=== PATIENT | male | born 1960 | race Caucasian/White ===

== ENCOUNTER 2019-06-06 10:17 | Outpatient (CLI) | payer BC, SELFPAY ==
--- NOTE | ~2019-06-06 | CT_ITS ---
EXAMINATION: CT lung screening DATE: 06/06/2019 12:24 INDICATION: Personal history of nicotine dependence. TECHNIQUE: Computed tomography (CT) of the chest was performed without intravenous contrast. The dose -length product was 69.32 mGy-cm. Automated exposure control and iterative reconstruction technique w ere employed. COMPARISON: Chest x-ray dated 08/24/2016 FINDINGS: No thoracic lymphadenopathy. Heart size is normal. No significant pleural or pericardial ef fusion. There is atherosclerosis of the aorta and coronary arteries. There is severe bullous emphysem a with right upper lobe scarring posteriorly. There are small hypodensities of the liver, largest in the left hepatic lobe measuring 1.8 cm. These are nonspecific. IMPRESSION: 1. Lung-RADS category 2: Benign appearance or behavior. Continue annual screening with noncontrast lo w-dose chest CT in 12 months. 2: Multiple hypodense masses of the liver, largest measuring 1.8 cm. Correlation with contrast-enhanc ed CT abdomen recommended. 3: Severe emphysema. Reviewed, dictated and finalized at location A. IMPRESSION: 1. Lung-RADS category 2: Benign appearance or behavior. Continue annual screeni ng with noncontrast low-dose chest CT in 12 months. 2: Multiple hypodense masses of the liver, largest measuring 1.8 cm. Correlatio n with contrast-enhanced CT abdomen recommended. 3: Severe emphysema.
--- NOTE | 2019-06-12 12:53 | WPDPFTINT ---
PFT Interpretation PFT Interpretation: DOS: 06/06/2019 REQUESTING: Dr Camacho REASON FOR TESTING: Shortness of breath PULMONARY FUNCTION TESTS Results are reproducible and reliable. Spirometry: FEV1 is 62%, 2.08 L, moderately reduced. FVC 87%, normal. FEV1% is 50%, reduced, consistent with airflow obstruction. OKE11-45% is 21%, extremely reduced. There is a significant response to bronchodilator in the small airways, 27% increase. Lung volumes: TLC 121%, mild hyperinflation. RV is 172%, severe air trapping. Increased airway resistance 292%. Diffusion: DLCO 86%, normal. Flow volume loop: Scooping of the expiratory limb. IMPRESSION: Moderate obstructive ventilatory impairment, severe small airways pattern, mild hyperinflation, severe air trapping with normal diffusion. Good response to bronchodilator in the small airways. In the proper clinical setting, this may represent asthma/COPD overlap. Bernie Camacho MD
--- NOTE | 2019-06-12 12:58 | WPDSIXMINUTE ---
Six Minute Walk Six Minute Walk: DOS: 06/06/2019 REQUESTING: Dr Camacho REASON FOR TESTING: Shortness of breath SIX MINUTE WALK This test was conducted per ATS guidelines. The test was conducted on room air. Initial saturation was 98%, heart rate 65. The patient walked for 6 minutes without stopping, completed 110 feet/335 meters. No desaturation. Saturation ranged form 96-99%. Heart rate ranged from 60 to 79. IMPRESSION: Normal walk study without desaturaiton. No supplemental oxygen indicated with exertion. Distance walked is adequate for age.
== END 2019-06-06 10:18 | disposition home or self-care (01) ==
PROVIDERS: PCP Emergency Medicine; Visit Provider Internal Medicine Critical Care Medicine
DX: J44.9 Chronic obstructive pulmonary disease, unspecified (principal); Z12.2 Encounter for screening for malignant neoplasm of respiratory organs; Z87.891 Personal history of nicotine dependence; R94.2 Abnormal results of pulmonary function studies; J43.9 Emphysema, unspecified; R16.0 Hepatomegaly, not elsewhere classified
CPT/HCPCS: 94060; 94618; 94726; 94729; G0297

== ENCOUNTER 2019-08-06 11:21 | Emergency (ER) | payer BC, SELFPAY ==
--- NOTE | ~2019-08-06 | XR_ITS ---
EXAMINATION: XR ankle LT min 3V EXAM DATE: 08/06/2019 11:42 INDICATION: Ankle pain, previous surgery. TECHNIQUE: Left ankle frontal, lateral and oblique projections obtained and reviewed. Comparison is m paul to prior examination from 10/11/2010. FINDINGS: There is left fibular, medial malleolar fixation hardware intact and without surrounding l ucency, no evidence of infection. There are no acute fractures or dislocations identified. There is no subcutaneous gas. The soft tissue is unremarkable. There are no radiopaque foreign bodies. Ank le joint space is preserved. IMPRESSION: Intact left mortise fusion hardware. Reviewed, dictated and finalized at location B.
[2019-08-06 11:25] VITALS: BP 196/80; PULSE 66; RESP 18; TEMP 36.6; O2SAT 97
--- NOTE | 2019-08-06 13:13 | ED.LOWEXIN ---
HPI - Extremity Injury (Lower) General Chief Complaint: Extremity Injury, Lower Stated Complaint: screws coming out of my leg Time Seen by Provider: 08/06/19 12:52 Source: patient Mode of arrival: ambulatory History of Present Illness HPI Narrative: 59 years old white male, history of left ankle surgery 6 years ago, over the last 6 months patient believes that the nail and screws coming out. Because he have bumps on the left ankle. Patient denies any recent trauma. Related Data Home Medications Medication Instructions Recorded Confirmed albuterol sulfate 90 mcg/actuation 1 inhalation INHALATION Q4H 05/23/19 aerosol inhaler amlodipine 10 mg tablet 10 mg PO DAILY 05/23/19 lisinopril 30 mg tablet 30 mg PO DAILY 05/23/19 Allergies Allergy/AdvReac Type Severity Reaction Status Date / Time pentazocine Allergy Mild Unknown Verified 08/06/19 11:41 Review of Systems Review of Systems: Narrative: CONSTITUTIONAL: Denies fever, chills, or sweats. EYES: Denies visual changes, redness, or discharge. ENT: Denies rhinorrhea, congestion, sore throat, or otalgia. CARDIOVASCULAR: Denies chest pain, palpitations, or edema. RESPIRATORY: Denies cough or dyspnea. GASTROINTESTINAL: Denies abdominal pain, nausea, vomiting, or diarrhea. GENITOURINARY: Denies dysuria or hematuria. SKIN: Denies rash or itching. MUSCULOSKELETAL: Denies back pain, joint pain, or myalgia. NEUROLOGIC: Denies headache, numbness, or weakness. PSYCHIATRIC: Denies anxiety or depression. [facility] Past Medical History Medical History Chest tube in place COPD (chronic obstructive pulmonary disease) Diverticulosis History of pneumothorax History of tobacco abuse HTN (hypertension) Marijuana smoker Shortness of breath on exertion Surgical History Surgical History Colonoscopy planned History of ankle surgery Social History Social History Smoking packs per day: 3 Smoking cigarettes per day: 60.0 Years smoked: 30 Smoking pack-years: 90.00 Smoking status: Former smoker Tobacco type: cigarettes Smoking end date: 03/10/17 Alcohol intake: current Drinks per week: 12 Substance use: current Substance use type: marijuana Last use: this morning; one joint per day Additional occupation/education comments: 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 Has 4 biologic children, lives with significant other Odalys and their daughter Julia. Gender identity (if verbalized by the patient): Male Exam Narrative: Exam Narrative: General appearance: Well-developed, well-nourished Skin: Normal color Head: Normocephalic, nontraumatic Eyes: Clear conjunctiva ENT: Oropharynx normal, ears normal, nose normal Neck: Supple, nontender Chest and respiratory: Airway patent, no respiratory distress, no accessory muscle use Heart: Regular rate/rhythm Abdomen: Soft, nontender, no organomegaly, quiet bowel sounds Vascular: Normal peripheral pulses, normal capillary refill. Musculoskeletal: Normal range of motion, nontender back. Left ankle showed surgical scar tissue, no bruises, no swelling, no deformity, palpable lumps along the side of the ankle bilaterally, no open wound, no erythema, no drainage Neurologic: Alert and oriented ?3, [employer]OCI[employer]UC[employer] is normal as tested, no gross motor deficit Course Course Emergency Course: Stable Vital Signs Vital signs: Vital Signs Temperature 36.6 C 08/06/19 11:25 Pulse Rate 66
[2019-08-06 13:17] VITALS: BP 140/103; PULSE 64; RESP 15; O2SAT 100
== END 2019-08-06 13:25 | disposition home or self-care (01) ==
PROVIDERS: Emergency Provider Emergency Medicine; PCP Emergency Medicine
DX: M25.572 Pain in left ankle and joints of left foot (principal); Z87.891 Personal history of nicotine dependence; J44.9 Chronic obstructive pulmonary disease, unspecified; K57.90 Diverticulosis of intestine, part unspecified, without perforation or abscess without bleeding
CPT/HCPCS: 73610; 99283

== ENCOUNTER 2019-10-29 18:12 | Emergency (ER) | payer OTHER, BC, SELFPAY ==
--- NOTE | ~2019-10-29 | CT_ITS ---
EXAMINATION: CT cervical spine wo con DATE: 10/29/2019 19:56 INDICATION: Neck pain TECHNIQUE: Computed tomography (CT) of the cervical spine was performed without intravenous contrast. The dose-length product (DLP) was 243.62 mGy-cm. Automated exposure control and iterative reconstruc tion technique were employed. COMPARISON: None FINDINGS: Motion artifact slightly limits evaluation of the mid cervical spine. No fracture is identi fied. There are 2 mm of anterolisthesis of C4 on C5. There is moderate loss of intervertebral disc sp ricci height at C5-6 and C6-7. The prevertebral soft tissues are normal. The odontoid is intact. There is mild to moderate multilevel facet and uncovertebral joint osteoarthritis. Severe emphysema is note d. IMPRESSION: 1. Moderate cervical spondylosis without acute findings. Reviewed, dictated and finalized at location A.
--- NOTE | ~2019-10-29 | XR_ITS ---
EXAMINATION: XR ribs LT 2V w CXR 2V INDICATION: Left rib and sternal pain, history of pneumothorax TECHNIQUE: AP and lateral views of the chest and 3 views of the left ribs were obtained. COMPARISON: None. FINDINGS: There is severe emphysema. Lungs are free of acute opacities. There is no pleural effusion or pneumothorax. The cardiomediastinal silhouette is normal. No displaced rib fracture is identified. IMPRESSION: 1. No acute cardiopulmonary abnormality or evidence of displaced rib fracture. 2. Severe emphysema. Reviewed, dictated and finalized at location A.
[2019-10-29 18:53] VITALS: BP 189/122; PULSE 77; RESP 17; TEMP 37.3; O2SAT 100
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
== END 2019-10-29 21:54 | disposition left against medical advice (07) ==
PROVIDERS: Emergency Provider Emergency Medicine; PCP Emergency Medicine
DX: S16.1XXA Strain of muscle, fascia and tendon at neck level, initial encounter (principal); S20.219A Contusion of unspecified front wall of thorax, initial encounter; R03.0 Elevated blood-pressure reading, without diagnosis of hypertension; Z87.891 Personal history of nicotine dependence; V43.52XA Car driver injured in collision with other type car in traffic accident, initial encounter
CPT/HCPCS: 71046; 71100; 72125; 99284; L0140

== ENCOUNTER 2020-03-22 11:33 | Outpatient (CLI) | payer BC, SELFPAY ==
[2020-03-22 12:53] LABS: Hematocrit 48.2 % (42.0-52.0); Hemoglobin 16.8 g/dL (14.0-18.0); Mean Corpuscular HGB Conc 34.9 g/dl (32-36); Mean Corpuscular Hemoglobin 34.6 pg (26-34); Mean Corpuscular Volume 99.2 fl (80-100); Mean Platelet Volume 9.4 fl (7.4-10.4); Platelet Count Result 215 k/mm3 (150-375); Red Blood Count 4.86 M/mm3 (4.6-6.20); Red Cell Distribution Width 11.4 % (11.5-14.5); White Blood Count 5.3 K/mm3 (4.5-10.0)
[2020-03-22 13:02] LABS: Hemoglobin A1C 5.3 % (<5.7)
[2020-03-22 13:08] LABS: Alanine Aminotransferase 19 U/L (4-50); Albumin Level 4.5 g/dL (3.5-5.1); Alkaline Phosphatase 56 U/L (38-126); Anion Gap 4 mmol/L (8-16); Aspartate Amino Transferase 31 U/L (17-59); Bilirubin,Total 0.4 mg/dL (0.2-1.3); Blood Urea Nitrogen 19 mg/dL (9-20); Calcium 9.8 mg/dL (8.4-10.2); Carbon Dioxide 32 mmol/L (22-30); Chloride 99 mmol/L (98-107); Estimated Glomerular Filt Rate > 60; Ethanol < 10 mg/dL (<10); Glucose 82 mg/dL (75-110); Potassium 4.6 mmol/L (3.4-5.0); Sodium 135 mmol/L (137-145)
[2020-03-22 13:11] LABS: Rheumatoid Factor < 8.6 IU/ML (<12)
[2020-03-22 13:16] LABS: Erythrocyte Sedimentation Rate 7 mm/hr (0-20)
[2020-03-22 13:34] LABS: Creatinine Urine 62.3 mg/dL
[2020-03-22 13:40] LABS: MALB Creatinine Ratio 26.8 mg/g (0-30); Microalbumin Urine Random 16.7 mg/L (0-16.7)
[2020-03-22 13:41] LABS: Prostate Specific Antigen 2.7 ng/mL (< OR = 4.0)
[2020-03-23 09:50] LABS: Cholesterol 148 mg/dL (0-200); HDL Direct 63 mg/dL; Triglycerides 69 mg/dL (<150)
[2020-03-23 09:54] LABS: LDL Cholesterol Direct 76 mg/dL
[2020-03-30 12:30] LABS: Anti Nuclear Antibody Titer 1:40 (Negative)
== END 2020-03-22 11:34 | disposition home or self-care (01) ==
PROVIDERS: PCP Emergency Medicine; Visit Provider Emergency Medicine
DX: R16.0 Hepatomegaly, not elsewhere classified (principal); K63.5 Polyp of colon
CPT/HCPCS: 36415; 80053; 80061; 80307; 82043; 82306; 82607; 83036; 84153; 85027; 85652; 86038; 86039; 86430

== ENCOUNTER 2020-04-21 13:52 | Emergency (ER) | payer BC, SELFPAY ==
[2020-04-21] VITALS (7 sets, daily range): BP systolic 137–184; BP diastolic 75–96; PULSE 66–76; RESP 12–18; TEMP 36.8; O2SAT 98–100
--- NOTE | ~2020-04-21 | XR_ITS ---
EXAMINATION: XR chest 2V DATE: 04/21/2020 14:50 INDICATION: Chest pain and shortness of breath. TECHNIQUE: Frontal and lateral views of the chest were obtained. COMPARISON: Chest 2 views 10/29/2019 FINDINGS: There are lucencies in the upper lungs, consistent with emphysema. No pleural effusion or p neumothorax. The heart size is normal. IMPRESSION: 1. Severe emphysema. Reviewed, dictated and finalized at location A. IMPRESSION: 1. Severe emphysema.
--- NOTE | 2020-04-21 13:58 | ECG_ITS ---
Measurements Intervals [place] Rate: 67 P: 69 WI: 163 QRS: 23 QRSD: 102 T: 59 QT: 354 QTc: 375 Interpretive Statements SINUS RHYTHM INCOMPLETE RIGHT BUNDLE BRANCH BLOCK PEAKED T WAVES- CONSIDER HYPERKALEMIA OR ISCHEMIA ABNORMAL ECG Electronically Signed On 04-21-2020 14:07:56 CDT by Mark Malin D.O.
--- NOTE | 2020-04-21 14:00 | PC.NURSE ---
BS 89
[2020-04-21 14:03] LABS: Glucose Point of Care 89 (65-105)
--- NOTE | 2020-04-21 14:15 | ED.GENADULT ---
HPI - General Adult General Chief complaint: Chest Pain Stated complaint: left side body pain Time Seen by Provider: 04/21/20 14:03 Source: patient History of Present Illness HPI narrative: Patient is a 60 y/o male complaining left sided pain starting today. He describes his pain as aching and rates it as 10/10. There is no alleviating or exacerbating factor. He also has generalized abdominal pain, SOB and chest pain. He has been drinking until yesterday. Related Data Home Medications Medication Instructions Recorded Confirmed albuterol sulfate 90 mcg/actuation 1 inhalation INHALATION Q4H 05/23/19 aerosol inhaler amlodipine 10 mg tablet 10 mg PO DAILY 05/23/19 lisinopril 30 mg tablet 30 mg PO DAILY 05/23/19 Allergies Allergy/AdvReac Type Severity Reaction Status Date / Time pentazocine Allergy Mild Unknown Verified 04/21/20 14:00 Review of Systems Constitutional: Constitutional: Denies chills, Denies fever(s), Denies headache(s) and Denies weakness Eyes: Eyes: Denies blurry vision ENT: Denies headache(s) and Denies neck pain Cardiovascular: Cardiovascular: Reports chest pain and Reports dyspnea Respiratory: Respiratory: Reports cough and Reports dyspnea Gastrointestinal: Gastrointestinal: Denies abdominal pain, Denies diarrhea, Denies nausea and Denies vomiting Genitourinary: Genitourinary: Denies hematuria and Denies dysuria Musculoskeletal: Musculoskeletal: Denies back pain, Reports myalgias and Denies neck pain Neurologic: Denies headache(s) and Denies weakness PMFSH Past Medical History Medical History (Updated 04/21/20 @ 23:18 by Corina Mccabe MD) Chest tube in place COPD (chronic obstructive pulmonary disease) Diverticulosis History of pneumothorax History of tobacco abuse HTN (hypertension) Marijuana smoker Shortness of breath on exertion Surgical History Surgical History Colonoscopy planned History of ankle surgery Social History Social History Smoking packs per day: 3 Smoking cigarettes per day: 60.0 Years smoked: 30 Smoking pack-years: 90.00 Smoking status: Former smoker Tobacco type: cigarettes Smoking end date: 03/10/17 Alcohol intake: current Drinks per week: 12 Substance use: current Substance use type: marijuana Last use: this morning; one joint per day Additional occupation/education comments: 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 Has 4 biologic children, lives with significant other Odalys and their daughter Julia. Gender identity (if verbalized by the patient): Male Exam Const: General: no acute distress and well developed Orientation/consciousness: oriented to person, oriented to place, oriented to time and patient oriented x3 HENMT: Head: normocephalic Ears: external ears normal General nose exam: Normal external nose present Eyes: General: appearance normal, both eyes and all related structures Conjunctivae: conjunctivae normal Neck: Neck: normal visual inspection and full ROM Chest: Chest palpation & inspection: normal inspection of the chest and no tenderness Resp: Effort & Inspection: normal respiratory effort Auscultation: clear to auscultation bilaterally Cardio: Rate: regular rate Rhythm: regular rhythm Peripheral pulses: Peripheral pulses 2+ throughout GI: GI Palp: No abdominal tenderness and Yes Soft to palpation Skin: General skin exam: normal color and turgor normal Neuro: General: oriented to person, oriented to place, oriented to time and patient oriented x3 Cognition (Neuro): normal cognition Extrem: General: normal to inspection, full ROM and no pedal edema Psych: Appearance: grossly normal Mental Status: mental status grossly normal Affect: normal affect Course Vital Signs Yuly
[2020-04-21 14:32] LABS: Basophils Percent Auto 0.5 % (0.2-1.2); Eosinophils Absolute Auto 0.1 K/mm3 (0-0.3); Eosinophils Percent Auto 1.3 % (0-4.4); Hematocrit 44.3 % (42.0-52.0); Hemoglobin 15.9 g/dL (14.0-18.0); Immature Granulocyte Absolute 0.02 K/mm3 (0.00-0.031); Immature Granulocyte Percent A 0.4 % (0-0.5); Lymphocytes Absolute Auto 1.37 K/mm3 (0.9-3.2); Lymphocytes Percent Auto 24.6 % (18.3-44.2); Mean Corpuscular HGB Conc 35.9 g/dl (32-36); Mean Corpuscular Volume 94.9 fl (80-100); Mean Platelet Volume 9.6 fl (7.4-10.4); Monocytes Absolute Auto 0.4 K/mm3 (0.1-0.6); Neutrophils Absolute Auto 3.7 K/mm3 (1.3-6.7); Neutrophils Percent Auto 66.2 % (45.5-73.1); Platelet Count Result 178 k/mm3 (150-375); Red Blood Count 4.67 M/mm3 (4.6-6.20); Red Cell Distribution Width 12.2 % (11.5-14.5); White Blood Count 5.6 K/mm3 (4.5-10.0)
[2020-04-21 14:36] LABS: INR 0.9; Prothrombin Time 12.4 Seconds (11.1-14.7)
[2020-04-21 14:37] LABS: Partial Thromboplastin Time 25.5 SECONDS (22.3-36.8)
[2020-04-21 14:38] LABS: Alanine Aminotransferase 16 U/L (4-50); Albumin Level 4.3 g/dL (3.5-5.1); Alkaline Phosphatase 69 U/L (38-126); Anion Gap 11 mmol/L (8-16); Aspartate Amino Transferase 26 U/L (17-59); Bilirubin,Total 0.6 mg/dL (0.2-1.3); Blood Urea Nitrogen 18 mg/dL (9-20); Calcium 8.9 mg/dL (8.4-10.2); Carbon Dioxide 22 mmol/L (22-30); Chloride 103 mmol/L (98-107); Estimated Glomerular Filt Rate > 60; Glucose 93 mg/dL (75-110); Lipase 59 U/L (23-300); Potassium 4.6 mmol/L (3.4-5.0); Sodium 136 mmol/L (137-145)
[2020-04-21] MEDS: ONDANSETRON INJ 4 MG/2 ML VIAL (14:45)
[2020-04-21 14:49] LABS: Troponin I < 0.012 ng/mL (0.000-0.034)
[2020-04-21 14:57] LABS: Ethanol 23 mg/dL (<10)
[2020-04-21 17:32] LABS: Troponin I < 0.012 ng/mL (0.000-0.034)
== END 2020-04-21 17:46 | disposition home or self-care (01) ==
PROVIDERS: Emergency Provider Emergency Medicine; PCP Emergency Medicine
DX: R10.84 Generalized abdominal pain (principal); M79.10 Myalgia, unspecified site; J44.9 Chronic obstructive pulmonary disease, unspecified; R07.9 Chest pain, unspecified; F10.929 Alcohol use, unspecified with intoxication, unspecified; I10 Essential (primary) hypertension; K57.90 Diverticulosis of intestine, part unspecified, without perforation or abscess without bleeding; Z87.891 Personal history of nicotine dependence; I45.10 Unspecified right bundle-branch block; R94.31 Abnormal electrocardiogram [ECG] [EKG]
CPT/HCPCS: 36415; 71046; 80053; 80307; 82948; 83690; 84484; 85025; 85610; 85730; 93005; 99284; J2405

== ENCOUNTER 2021-07-19 09:01 | Emergency (ER) | payer BC, SELFPAY ==
--- NOTE | ~2021-07-19 | XR_ITS ---
XR ankle LT min 3V 07/19/2021 09:39 Indication: Status post fall with left ankle pain Procedure: 4 views left ankle Comparison: 08/06/2019 Findings: There is side plate and screws transfixing the distal aspect of the fibula. There are 2 lag screws transfixing the medial malleolus. No acute fracture or traumatic malalignment. Ankle mortise intact. Talar dome is grossly unremarkable. No focal soft tissue abnormality. Impression: 1: No acute fracture. Reviewed, dictated and finalized at location A. Impression: 1: No acute fracture.
--- NOTE | ~2021-07-19 | XR_ITS ---
XR knee LT 3V 07/19/2021 09:39 Indication: Left knee pain Procedure: 3 views left knee Comparison: No prior studies for comparison. Findings: No fracture or traumatic malalignment. There is anatomic alignment. No significant joint ef fusion. No foreign bodies. Extensive vascular calcifications. Impression: 1: No acute bone or joint abnormality. Reviewed, dictated and finalized at location A. Impression: 1: No acute bone or joint abnormality.
[2021-07-19 09:05] VITALS: BP 139/77; PULSE 73; RESP 18; TEMP 36.8; O2SAT 97
--- NOTE | 2021-07-19 09:26 | ED.LOWEXIN ---
HPI - Extremity Injury (Lower) General Chief Complaint: Extremity Injury, Lower Stated Complaint: Left Leg Swelling Time Seen by Provider: 07/19/21 09:12 History of Present Illness HPI Narrative: Patient is a 61-year-old male here for evaluation of left lower leg pain. Patient states that he fell last week while he was cutting the grass, and landed on his left knee. No head injury or loss of consciousness. He has been taking ibuprofen for the pain with good relief, but he presents today due to concerns of screws coming out of my lower leg . Patient had the screws placed about 4 years ago by an unknown surgeon after he sustained a fracture in his ankle. States he has been able to feel the screws for 2 years, but presented today due to the recent fall. Denies numbness, tingling, weakness. He has been ambulatory without issue. Related Data Home Medications Medication Instructions Recorded Confirmed amlodipine 10 mg tablet 10 mg PO DAILY 05/23/19 lisinopril 30 mg tablet 30 mg PO DAILY 05/23/19 Allergies Allergy/AdvReac Type Severity Reaction Status Date / Time pentazocine Allergy Mild Unknown Verified 07/19/21 09:08 Review of Systems Review of Systems: Gen.: Denies fevers or chills Eyes: Denies eye pain or visual change ENT: Denies congestion Respiratory: Denies shortness of breath or cough CV: Denies chest pain or palpitations GI: Denies abdominal pain nausea, emesis or diarrhea denies burning, urgency, frequency or hematuria Musculoskeletal: Reports left knee and ankle pain. Neuro: Denies numbness, tingling, weakness or focal weakness Skin: Denies rash Except as documented, all other systems reviewed and negative [facility] Past Medical History Medical History (Updated 07/19/21 @ 10:01 by Donna Jackson PA-C) Chest tube in place COPD (chronic obstructive pulmonary disease) Diverticulosis History of pneumothorax History of tobacco abuse HTN (hypertension) Marijuana smoker Shortness of breath on exertion Surgical History Surgical History Colonoscopy planned History of ankle surgery Social History Social History Smoking packs per day: 3 Smoking cigarettes per day: 60.0 Years smoked: 30 Smoking pack-years: 90.00 Smoking status: Former smoker Tobacco type: cigarettes Smoking end date: 03/10/17 Alcohol intake: current Drinks per week: 12 Substance use: current Substance use type: marijuana Last use: this morning; one joint per day Additional occupation/education comments: 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 Has 4 biologic children, lives with significant other Odalys and their daughter Julia. Gender identity (if verbalized by the patient): Male Exam Narrative: Gen: Alert, oriented, thin Eyes: EOMI, no icterus Pulm: Respirations even and unlabored, symmetric thorax expansion, no audible stridor or visible cyanosis CV: Regular rate per telemetry GI: No distension, no voluntary/involuntary guarding Neuro: AOx4, moves all extremities without apparent difficulty or weakness, follows commands MSK: Tender to palpation over left anterior patella. Palpable screws under skin of left lateral malleolus. Full range of motion in left knee, hip, ankle. Sensation intact over entire left lower extremity. Skin: No jaundice, no visible bruising, rashes, lesions or wounds on exposed skin Psych: Normal mood/affect, insight/judgement good, adequate fund of knowledge, recent/remote memory intact Course Vital Signs Vital signs: Vital Signs Temperature 98.3 F 07/19/21 09:05 Pulse Rate 73 07/19/21 09:05 Respiratory Rate 18 07/19/21 09:05 Blood Pressure 139/77 07/19/21 09:05 Pulse Oximetry 97 07/19/21 09:05 Oxygen Delivery Room Air 07/19/21 09:05
== END 2021-07-19 10:26 | disposition home or self-care (01) ==
PROVIDERS: Emergency Provider General Practice
DX: M79.662 Pain in left lower leg (principal); J44.9 Chronic obstructive pulmonary disease, unspecified; I10 Essential (primary) hypertension; Z87.891 Personal history of nicotine dependence
CPT/HCPCS: 73562; 73610; 99284

== ENCOUNTER 2022-02-08 10:05 | Emergency (ER) | payer BC, SELFPAY ==
--- NOTE | 2022-02-08 10:08 | ED.GENADULT ---
HPI - General Adult General Chief complaint: Ear Stated complaint: Right Hand/Ear Pain/ High B/P Time Seen by Provider: 02/08/22 10:33 Source: patient, RN notes reviewed and old records reviewed Mode of arrival: ambulatory Limitations: no limitations History of Present Illness HPI narrative: 61-year-old male presents to the [facility] with multiple complaints, decreased hearing in the right ear, chest pain with blurry vision, elevated blood pressure requesting just to have a as prescribed blood pressure medication. States he has tried getting in with his primary but they will prescribe anything for him once his ears flushed out his, right 1 because he can not hear anything reports Intermittent blurry vision and intermittent chest for several weeks. Patient is alert and oriented x4. No acute distress. MD complaint: The right ear decreased hearing Related Data Home Medications Medication Instructions Recorded Confirmed amlodipine 10 mg tablet 10 mg PO DAILY 05/23/19 02/08/22 lisinopril 30 mg tablet 30 mg PO DAILY 05/23/19 02/08/22 isosorbide mononitrate 30 mg 1 mg PO DAILY 02/08/22 02/08/22 tablet,extended release 24 hr Allergies Allergy/AdvReac Type Severity Reaction Status Date / Time pentazocine Allergy Mild Unknown Verified 02/08/22 10:29 Review of Systems Review of Systems: All systems reviewed & are unremarkable except as noted in HPI and below Constitutional: Constitutional: Reports no additional constitutional complaints Eyes: Eyes: Reports no additional eye complaints ENT: Reports as per HPI Cardiovascular: Cardiovascular: Reports as per HPI, Reports chest pain and Denies dyspnea Respiratory: Respiratory: Reports no additional respiratory complaints, Denies chest congestion, Denies cough and Denies dyspnea Gastrointestinal: Gastrointestinal: Reports no additional gastrointestinal complaints, Denies abdominal pain, Denies nausea and Denies vomiting Musculoskeletal: Musculoskeletal: Reports no additional musculoskeletal complaints Integumentary/Breasts: Skin/Breast: Reports system reviewed and no additional complaints, except as docu Neurologic: Reports system reviewed and no additional complaints, except as documented Psychiatric: Psychiatric: Reports no additional psychiatric complaints Allergic/Immunologic: Allergic/Immunologic: Reports no additional allergic/immunologic complaints PMFSH Past Medical History Medical History Chest tube in place COPD (chronic obstructive pulmonary disease) Diverticulosis History of pneumothorax History of tobacco abuse HTN (hypertension) Marijuana smoker Shortness of breath on exertion Surgical History Surgical History Colonoscopy planned History of ankle surgery Social History Social History Smoking packs per day: 3 Smoking cigarettes per day: 60.0 Years smoked: 30 Smoking pack-years: 90.00 Smoking status: Former smoker Tobacco type: cigarettes Smoking end date: 03/10/17 Alcohol intake: current Drinks per week: 12 Substance use: current Substance use type: marijuana Last use: this morning; one joint per day Additional occupation/education comments: 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 Has 4 biologic children, lives with significant other Odalys and their daughter Julia. Gender identity (if verbalized by the patient): Male Comments At the time of my signature, I reviewed and agree with the nursing past medical, surgical, social, and family history. There is no relevant family history pertinent to the patient complaint. Exam Const: General: cooperative, healthy appearing, comfortable, no acute distress, well developed, alert and well nourishe
[2022-02-08 10:17] VITALS: BP 197/100; PULSE 72; RESP 16; TEMP 36.8; O2SAT 98
== END 2022-02-08 10:43 | disposition left against medical advice (07) ==
PROVIDERS: Emergency Provider Nurse Practitioner
DX: I10 Essential (primary) hypertension (principal); H61.21 Impacted cerumen, right ear; Z87.891 Personal history of nicotine dependence; J44.9 Chronic obstructive pulmonary disease, unspecified; F12.90 Cannabis use, unspecified, uncomplicated
CPT/HCPCS: 99211; G0463

== ENCOUNTER 2022-02-09 09:26 | Emergency (ER) | payer BC, SELFPAY ==
--- NOTE | ~2022-02-09 | CT_ITS ---
Non-contrast Head CT History: Headache Technique: Axial non-contrast imaging of the brain was performed. Dose reduction technique was used on this scan by utilizing automated exposure control and iterative reconstruction technique. The dose -length product (DLP) was 605.33 mGy-cm. Findings: There is no evidence of intracranial hemorrhage, mass lesion, or acute infarct. Brain par enchyma appears normal. The ventricles and subarachnoid spaces are normal in size. The calvarium ap pears normal. The visualized paranasal sinuses and mastoid air cells are clear. Impression: No significant abnormality seen. Reviewed, dictated and finalized at location . DIRECTOR Impression: No significant abnormality seen.
--- NOTE | ~2022-02-09 | XR_ITS ---
Clinical Indication: Hypertension PA view of the chest: Comparison: 04/21/2020 Findings: Focal airspace opacity right upper lobe noted, nonspecific. Probable COPD. Cardiomediastina l silhouette is within normal limits. Bones and soft tissues are unremarkable. Impression: Focal right upper lobe airspace opacity. This could reflect focal pneumonitis versus possibly scarrin g or pulmonary nodule. Consider CT or short-term follow-up exam. Underlying COPD suspected. Reviewed, dictated and finalized at location . PRIMARY CARE PHYSICIAN Impression: Focal right upper lobe airspace opacity. This could reflect focal pneumonitis v ersus possibly scarring or pulmonary nodule. Consider CT or short-term follow-u p exam. Underlying COPD suspected.
[2022-02-09 09:38] VITALS: BP 166/103; PULSE 73; RESP 20; TEMP 36.8; O2SAT 99
[2022-02-09 12:14] VITALS: BP 210/104; PULSE 74; RESP 16; TEMP 36.6; O2SAT 98
[2022-02-09 12:36] VITALS: RESP 14
--- NOTE | 2022-02-09 12:59 | ECG_ITS ---
Measurements Intervals [place] Rate: 63 P: 62 [place]: 147 QRS: -2 QRSD: 106 T: 59 QT: 384 QTc: 394 Interpretive Statements SINUS RHYTHM INCOMPLETE RIGHT BUNDLE BRANCH BLOCK PEAKED T WAVES- CONSIDER HYPERKALEMIA BASELINE ARTIFACT- I, II, AVR ABNORMAL ECG COMPARED TO ECG 04/21/2020 13:58:09 NO SIGNIFICANT CHANGES Electronically Signed On 02-09-2022 14:21:42 [employer]OD SUPERVISOR by Mark Malin D.O.
--- NOTE | 2022-02-09 13:15 | ED.GENADULT ---
HPI - General Adult General Chief complaint: Recheck/Abnormal Lab/Rx Stated complaint: high blood pressure Time Seen by Provider: 02/09/22 12:56 History of Present Illness HPI narrative: 61-year-old male with history of hypertension presented to the emergency department for evaluation of headache and elevated blood pressure. Patient states he has been out of his home medications for the last 3 weeks. Patient states he attempted to contact his primary care physician and was told that they could not have the medications filled. Patient does report some intermittent chest pain does report intermittent headache. Patient denies any associated dizziness lightheadedness or shortness of breath. Patient does have history of COPD Related Data Home Medications Medication Instructions Recorded Confirmed amlodipine 10 mg tablet 10 mg PO DAILY 05/23/19 02/08/22 lisinopril 30 mg tablet 30 mg PO DAILY 05/23/19 02/08/22 isosorbide mononitrate 30 mg 1 mg PO DAILY 02/08/22 02/08/22 tablet,extended release 24 hr Allergies Allergy/AdvReac Type Severity Reaction Status Date / Time pentazocine Allergy Mild Unknown Verified 02/08/22 10:29 Review of Systems Review of Systems: CONSTITUTIONAL: Denies fever, chills, or sweats. EYES: Denies visual changes, redness, or discharge. ENT: Denies rhinorrhea, congestion, sore throat, or otalgia. CARDIOVASCULAR: See HPI RESPIRATORY: Denies cough or dyspnea. GASTROINTESTINAL: Denies abdominal pain, nausea, vomiting, or diarrhea. GENITOURINARY: Denies dysuria or hematuria. SKIN: Denies rash or itching. MUSCULOSKELETAL: Denies back pain, joint pain, or myalgia. NEUROLOGIC: See HPI [facility] Past Medical History Medical History (Updated 02/09/22 @ 15:49 by Chino Escudero MD) Chest tube in place COPD (chronic obstructive pulmonary disease) Diverticulosis History of pneumothorax History of tobacco abuse HTN (hypertension) Marijuana smoker Shortness of breath on exertion Surgical History Surgical History Colonoscopy planned History of ankle surgery Social History Social History Smoking packs per day: 3 Smoking cigarettes per day: 60.0 Years smoked: 30 Smoking pack-years: 90.00 Smoking status: Former smoker Tobacco type: cigarettes Smoking end date: 03/10/17 Alcohol intake: current Drinks per week: 12 Substance use: current Substance use type: marijuana Last use: this morning; one joint per day Additional occupation/education comments: 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 Has 4 biologic children, lives with significant other Odalys and their daughter Julia. Gender identity (if verbalized by the patient): Male Exam Narrative: APPEARANCE: Well appearing, no pain, no distress, well-nourished. HEAD: normocephalic, atraumatic. EYES: PERRLA/EOMI, conjunctivae clear. NOSE: Normal no drainage NECK: Supple. No adenopathy, no masses. RESPIRATORY: Airway patent, respirations nonlabored. Clear to auscultation bilaterally, no rales, rhonchi, wheezing. CARDIOVASCULAR: Regular rate and rhythm without murmurs rubs or gallops. ABDOMINAL: Soft, nontender, nondistended, normal bowel sounds MUSCULOSKELETAL: Moves all extremities. Strength/ROM intact, No edema, No calf tenderness. NEURO: Alert. Cranial nerves II through XII intact. Grossly intact SKIN: Warm, dry. Normal Color Course Course Emergency Course: Patient's blood pressure did improve significantly with treatment. Patient denies any current chest pain or shortness of breath. Patient was updated on the results of his labs and imaging and was encouraged to have close follow-up with his primary care physician. Patient states that he was having difficulty getting into a follow-up so he was provided
--- NOTE | 2022-02-09 13:29 | PC.NURSE ---
not in room to complete orders
[2022-02-09] MEDS: amLODIPine BESYLATE 5 MG TABLET 10 MG PO (13:56)
[2022-02-09] MEDS: hydrALAZINE HCL 20 MG/ML VIAL 10 MG IV PUSH (13:57)
[2022-02-09] MEDS: lisinopriL 20 MG TABLET 40 MG PO (13:57)
[2022-02-09 14:01] VITALS: PULSE 62
[2022-02-09 14:20] LABS: Basophils Absolute Auto 0.1 K/mm3 (0.0-0.1); Basophils Percent Auto 0.9 % (0.2-1.2); Eosinophils Percent Auto 0.5 % (0-4.4); Hematocrit 58.4 % (42.0-52.0); Hemoglobin 20.8 g/dL (14.0-18.0); Immature Granulocyte Absolute 0.02 K/mm3 (0.00-0.031); Immature Granulocyte Percent A 0.3 % (0-0.5); Lymphocytes Absolute Auto 1.21 K/mm3 (0.9-3.2); Lymphocytes Percent Auto 20.9 % (18.3-44.2); Mean Corpuscular HGB Conc 35.6 g/dl (32-36); Mean Corpuscular Hemoglobin 37.7 pg (26-34); Monocytes Absolute Auto 0.4 K/mm3 (0.1-0.6); Monocytes Percent Auto 6.4 % (2.6-8.5); Neutrophils Absolute Auto 4.1 K/mm3 (1.3-6.7); Platelet Count Result 213 k/mm3 (150-375); Red Blood Count 5.51 M/mm3 (4.6-6.20); Red Cell Distribution Width 13.2 % (11.5-14.5); White Blood Count 5.8 K/mm3 (4.5-10.0)
[2022-02-09 14:21] LABS: Alanine Aminotransferase 35 U/L (6-50); Albumin Level 4.9 g/dL (3.5-5.1); Alkaline Phosphatase 113 U/L (38-126); Anion Gap 8 mmol/L (8-16); Aspartate Amino Transferase 48 U/L (17-59); Bilirubin,Total 1.2 mg/dL (0.2-1.3); Blood Urea Nitrogen 13 mg/dL (9-20); Calcium 9.1 mg/dL (8.4-10.2); Carbon Dioxide 28 mmol/L (22-30); Chloride 97 mmol/L (98-107); Estimated CRCL calculation 100 ml/min; Estimated Glomerular Filt Rate > 60; Glucose 93 mg/dL (65-110); Potassium 4.2 mmol/L (3.4-5.0); Sodium 133 mmol/L (137-145)
[2022-02-09 14:23] LABS: Partial Thromboplastin Time 29.6 SECONDS (22.3-36.8); Prothrombin Time 12.9 Seconds (11.1-14.7)
--- NOTE | 2022-02-09 14:24 | PC.NURSE ---
not in room to recheck BP
[2022-02-09 14:33] LABS: Troponin I < 0.012 ng/mL (0.000-0.034)
[2022-02-09 14:38] VITALS: BP 178/100; PULSE 84; RESP 14
[2022-02-09 15:09] LABS: Add Urine Microscopic? YES; Appearance Urine Slightly Cloudy (Clear); Bilirubin Urine Negative (Negative); Blood Urine Negative (Negative); Color Urine Yellow (Yellow); Glucose Urine UA Negative (Negative); Ketones Urine Negative (Negative); Leukocyte Esterase Ur 1+ LEU/UL (Negative); Nitrate Urine Negative (Negative); Protein Urine Negative (Negative); Urobilinogen Urine 0.2 mg/dL (<2.0); pH Urine 6.5 (5.0-9.0)
[2022-02-09 15:32] LABS: Amphetamine Screen Urine Negative (Negative); Barbiturate Screen Urine Negative (Negative); Benzodiazepines Screen Urine Negative (Negative); Cannabinoid Screen Urine Positive (Negative); Cocaine Screen Urine Negative (Negative); Methadone Screen Urine Negative (Negative); Opiate Screen Urine Negative (Negative); Phencyclidine Screen Urine Negative (Negative)
[2022-02-09 15:41] VITALS: BP 160/95; PULSE 82; RESP 14; O2SAT 100
[2022-02-09 16:16] LABS: Troponin I < 0.012 ng/mL (0.000-0.034)
== END 2022-02-09 17:09 | disposition home or self-care (01) ==
PROVIDERS: Emergency Provider Emergency Medicine
DX: I10 Essential (primary) hypertension (principal); J44.9 Chronic obstructive pulmonary disease, unspecified; Z87.891 Personal history of nicotine dependence; I45.10 Unspecified right bundle-branch block; R94.31 Abnormal electrocardiogram [ECG] [EKG]
CPT/HCPCS: 36415; 70450; 71045; 80053; 80307; 81001; 84484; 85025; 85610; 85730; 93005; 96374; 99284; A9270; J0360

== ENCOUNTER 2022-08-18 09:05 | Emergency (ER) | payer BC, SELFPAY ==
[2022-08-18 09:20] VITALS: BP 205/99; PULSE 73; RESP 18; TEMP 37.3; O2SAT 98
--- NOTE | 2022-08-18 09:26 | ED.DENTAL ---
HPI - Dental/Oral General Chief complaint: Dental/Oral Stated complaint: Dental Pain Time Seen by Provider: 08/18/22 09:26 Source: patient Mode of arrival: ambulatory Limitations: no limitations History of Present Illness HPI Narrative: 62-year-old male presents with complaint lower dental pain for several days. States that he called the [place] dentist and unable to get him in for several weeks. States that this tooth has been rotten for several months. Overall has poor dentition. Afebrile. Also needs blood pressure medication filled. His PCP dropped him because he was unable to get colonoscopy. States he didn't have gas money to drive to all the appts. Pt denies CP and SOB. Has been off medication for 2 to 3 months. All systems reviewed and negative except as noted above. Related Data Allergies Allergy/AdvReac Type Severity Reaction Status Date / Time pentazocine Allergy Mild Unknown Verified 08/18/22 09:28 Review of Systems Review of Systems: CONSTITUTIONAL: Denies fever, chills, or sweats. EYES: Denies visual changes, redness, or discharge. ENT: Denies rhinorrhea, congestion, sore throat, or otalgia. reports left lower dental pain. CARDIOVASCULAR: Denies chest pain, palpitations, or edema. RESPIRATORY: Denies cough or dyspnea. GASTROINTESTINAL: Denies abdominal pain, nausea, vomiting, or diarrhea. GENITOURINARY: Denies dysuria or hematuria. SKIN: Denies rash or itching. MUSCULOSKELETAL: Denies back pain, joint pain, or myalgia. NEUROLOGIC: Denies headache, numbness, or weakness. PSYCHIATRIC: Denies anxiety or depression. All other systems reviewed are negative, except as documented in HPI. [facility] Past Medical History Medical History (Updated 08/18/22 @ 09:39 by Nel Dover NP) Chest tube in place COPD (chronic obstructive pulmonary disease) Diverticulosis History of pneumothorax History of tobacco abuse HTN (hypertension) Marijuana smoker Shortness of breath on exertion Surgical History Surgical History Colonoscopy planned History of ankle surgery Social History Social History Smoking packs per day: 3 Smoking cigarettes per day: 60.0 Years smoked: 30 Smoking pack-years: 90.00 Smoking status: Former smoker Tobacco type: cigarettes Smoking end date: 03/10/17 Alcohol intake: current Drinks per week: 12 Substance use: current Substance use type: marijuana Last use: this morning; one joint per day Living arrangements: with family Occupation/Education: unemployed Additional occupation/education comments: 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 Has 4 biologic children, lives with significant other Odalys and their daughter Julia. Gender identity (if verbalized by the patient): Male Comments At time of signature, agree with nursing past medical, surgical, social and family history. There is no relevant family history pertinent to the presenting complaint. Exam Narrative: GENERAL: This is a well-nourished, well-developed patient, in no apparent distress. HEAD: normocephalic, atraumatic. EYES: PERRL. Sclera clear/white. Vision is grossly intact. EARS: External ears normal NOSE: External nose normal MOUTH: tooth #23 rotten NECK: Neck supple, non-tender without lymphadenopathy, masses or thyromegaly. CARDIOVASCULAR: Regular rate and rhythm without murmurs, gallops, or rubs. RESPIRATORY: Clear to auscultation. Breath sounds equal bilaterally. No wheezes, rales, or rhonchi. SKIN: warm, Dry, intact with no suspicious lesions or rash, good texture and turgor. NEURO: awake, alert, and oriented to person, place and time. There were no obvious focal neurologic abnormalities. EXTREMITIES: No joint tenderness, effusion, or edema noted.
[2022-08-18 09:30] VITALS: BP 209/100
[2022-08-18] MEDS: KETOROLAC 30 MG/ML VIAL (*BKC) IM (09:40)
[2022-08-18 10:15] VITALS: BP 180/98
== END 2022-08-18 10:17 | disposition home or self-care (01) ==
PROVIDERS: Emergency Provider Nurse Practitioner Family
DX: K04.7 Periapical abscess without sinus (principal); I10 Essential (primary) hypertension; Z87.891 Personal history of nicotine dependence; J44.9 Chronic obstructive pulmonary disease, unspecified; F12.90 Cannabis use, unspecified, uncomplicated
CPT/HCPCS: 96372; 99213; G0463; J1885

== ENCOUNTER 2023-04-05 09:00 | Emergency (ER) | payer BC, SELFPAY ==
--- NOTE | 2023-04-05 09:02 | ED.DENTAL ---
HPI - Dental/Oral General Chief complaint: Dental/Oral Stated complaint: Dental Pain Time Seen by Provider: 04/05/23 09:02 Source: patient Mode of arrival: ambulatory Limitations: no limitations History of Present Illness HPI Narrative: Dionte is a 63 year year old male patient presenting to the clinic today with complaints of dental pain x1 month. He reports he has been saving up money to get this tooth pulled. Reports that is more painful and swollen the last few days. Related Data Allergies Allergy/AdvReac Type Severity Reaction Status Date / Time pentazocine Allergy Mild Unknown Verified 08/18/22 09:28 Review of Systems Review of Systems: Pertinent positives per HPI. Patient denies any fever, chills, rash, headache, visual changes, dizziness, cough, runny nose, sore throat, shortness of breath, chest pain, palpitations, nausea, vomiting, diarrhea, constipation, abdominal pain, or any urinary issues. [facility] Past Medical History Medical History Chest tube in place COPD (chronic obstructive pulmonary disease) Diverticulosis History of pneumothorax History of tobacco abuse HTN (hypertension) Marijuana smoker Shortness of breath on exertion Surgical History Surgical History Colonoscopy planned History of ankle surgery Social History Social History Smoking packs per day: 3 Smoking cigarettes per day: 60.0 Years smoked: 30 Smoking pack-years: 90.00 Smoking status: Former smoker Tobacco type: cigarettes Smoking end date: 03/10/17 Alcohol intake: current Drinks per week: 12 Substance use: current Substance use type: marijuana Last use: this morning; one joint per day Living arrangements: with family Occupation/Education: unemployed Additional occupation/education comments: 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 Has 4 biologic children, lives with significant other Odalys and their daughter Julia. Gender identity (if verbalized by the patient): Male Comments At the time of my signature, I reviewed and agree with the nursing past medical, surgical, social, and family history. There is no relevant family history pertinent to the patient complaint. Exam Narrative: General: Well-developed, well nourished, in no apparent distress Head: Normocephalic, atraumatic Eyes: Pupils equally round and reactive to light bilaterally, EOM intact, sclera and conjunctive clear, no discharge, lids normal Ears: TMs intact and clear, ear canals clear, no drainage, grossly hearing normal. Nose: Nares patent, no discharge, no inflammation, no sinus tenderness. Mouth: Oropharynx without lesions or masses, poor dentition, MMM. One single tooth to the left lower jaw with gum swelling and decay-tenderness to palpation without fluctuance abscess Neck: Supple, trachea midline, no enlargement of anterior or posterior cervical nodes, no thyroid masses or goiter palpable. Cardio: Regular rate and rhythm, s1 and s2 normal, no murmur appreciated. Resp: Clear to auscultation bilaterally anteriorly and posteriorly, no rhonchi, rales, wheezing or rubs Course Course Emergency Course: Portions of this record may have been created with voice recognition software. Level of Care: Express Care Visit Vital Signs Vital signs: Vital signs reviewed MDM - Dental/Oral MDM Narrative Medical decision making narrative: At the time of visit patient is resting comfortably on the exam table. Patient appears to be nontoxic. Plan: Suspect patient has a toothache/dental infection. Prescription for Augmentin was sent to the pharmacy. Supportive measures were discussed with the patient and they voiced understanding discharge instruc
[2023-04-05 09:08] VITALS: BP 168/91; PULSE 78; RESP 16; TEMP 37; O2SAT 98
== END 2023-04-05 09:25 | disposition home or self-care (01) ==
PROVIDERS: Emergency Provider Nurse Practitioner Family
DX: K04.7 Periapical abscess without sinus (principal); Z87.891 Personal history of nicotine dependence; F12.90 Cannabis use, unspecified, uncomplicated; J44.9 Chronic obstructive pulmonary disease, unspecified; I10 Essential (primary) hypertension
CPT/HCPCS: 99213; G0463

== ENCOUNTER 2023-09-15 08:44 | Observation (INO) | payer BC, SELFPAY ==
[2023-09-15] VITALS (12 sets, daily range): BP systolic 170–196; BP diastolic 89–109; PULSE 63–77; RESP 13–20; TEMP 36.3–36.7; O2SAT 98–100; BMI 19.3
--- NOTE | ~2023-09-15 | MR_ITS ---
EXAMINATION: MR brain/brain stem wo/w con DATE: 09/16/2023 08:18 INDICATION: Intranuclear ophthalmoplegia. TECHNIQUE: Magnetic resonance imaging (MRI) of the brain and brainstem was performed without and with 12 mL MultiHance intravenous contrast. COMPARISON: Head CT 09/15/2023 FINDINGS: There is no intracranial hemorrhage, acute infarction, or abnormal intracranial mass lesion . There are old lacunar infarcts in the bilateral basal ganglia and left thalamus. There are scattere d areas of nonspecific increased T2-weighted signal intensity in the cerebral white matter. The vent ricles are normal in size. The orbits are normal. The paranasal sinuses are clear. The mastoid air ce lls are normal. IMPRESSION: 1. Old lacunar infarcts in the bilateral basal ganglia and left thalamus. 2. Moderate nonspecific cerebral white matter disease, which likely represents chronic small vessel i schemic disease. Reviewed, dictated and finalized at location A. IMPRESSION: 1. Old lacunar infarcts in the bilateral basal ganglia and left thalamus. 2. Moderate nonspecific cerebral white matter disease, which likely represents chronic small vessel ischemic disease.
--- NOTE | ~2023-09-15 | CT_ITS ---
EXAMINATION: CTA brain carotid DATE: 09/15/2023 09:12 INDICATION: Headache. Dizziness. Blurred vision. TECHNIQUE: Computed tomographic angiography (CTA) of the head was performed without and with 100 mL O mnipaque-350 intravenous contrast. CTA of the neck was performed with intravenous contrast. Automated exposure control and iterative reconstruction technique were employed. The dose-length product was 1 774.03 mGy-cm. Maximum intensity projection and volume rendered 3D-reconstructions were created by nnamdi saez technologist on a separate workstation. COMPARISON: Head CT 02/09/2022 FINDINGS: HEAD CTA: There are old lacunar infarcts in the bilateral basal ganglia. There are scattered areas of low attenuation in the cerebral white matter. There is no intracranial hemorrhage, acute infarction, or abnormal intracranial mass lesion. The ventricles are normal in size. There is mild mucosal thick ening in the paranasal sinuses. The orbits are normal. The mastoid air cells are normal. The vertebra l arteries are codominant. There is no significant stenosis of basilar artery or the posterior cerebr al arteries. There is no significant stenosis of the intracranial internal carotid arteries or anteri or or middle cerebral arteries. Anterior communicating artery is normal. The posterior communicating arteries are normal. There is no aneurysm. NECK CTA: There is severe emphysema. There are no pathologically enlarged lymph nodes. There is a 15 mm subcutaneous cyst in right posterior neck, likely a sebaceous cyst. There is no significant stenos is of the vertebral arteries. There is plaque in the proximal internal carotid arteries. There is 56% stenosis of the proximal right internal carotid artery relative to normal distal artery lumen diamet er (NASCET criteria). There is 5% stenosis of the proximal left internal carotid artery relative to n ormal distal artery lumen diameter. There is severe cervical spondylosis. IMPRESSION: 1. Old lacunar infarcts in the bilateral basal ganglia. 2. Stable moderate nonspecific cerebral white matter disease, which likely represents chronic small v essel ischemic disease. 3. No aneurysm or significant intracranial arterial stenosis. 4. 56% stenosis of the proximal right internal carotid artery relative to normal distal artery lumen diameter (NASCET criteria). 5. 5% stenosis of the proximal left internal carotid artery relative to normal distal artery lumen di ameter. Reviewed, dictated and finalized at location A. IMPRESSION: 1. Old lacunar infarcts in the bilateral basal ganglia. 2. Stable moderate nonspecific cerebral white matter disease, which likely repr esents chronic small vessel ischemic disease. 3. No aneurysm or significant intracranial arterial stenosis. 4. 56% stenosis of the proximal right internal carotid artery relative to rob l distal artery lumen diameter (NASCET criteria). 5. 5% stenosis of the proximal left internal carotid artery relative to normal distal artery lumen diameter.
--- NOTE | ~2023-09-15 | MR_ITS ---
EXAMINATION: MR orbits face neck wo/w con DATE: 09/16/2023 08:18 INDICATION: Intranuclear ophthalmoplegia. Blurred vision. Abnormal ocular movements. TECHNIQUE: Magnetic resonance imaging (MRI) of the orbits was performed without and with 12 mL MultiH ance intravenous contrast. COMPARISON: Head CT 09/15/2023 FINDINGS: The extraocular muscles, optic nerves, and ocular globes are normal. There is no abnormal o rbital mass. There is mild mucosal thickening in the paranasal sinuses. IMPRESSION: 1. Normal orbits. Reviewed, dictated and finalized at location A. IMPRESSION: 1. Normal orbits.
--- NOTE | ~2023-09-15 | XR_ITS ---
EXAMINATION: XR chest 2V DATE: 09/15/2023 09:19 INDICATION: Dizziness. Hypertension. TECHNIQUE: Frontal and lateral views of the chest were obtained on 3 radiographs. COMPARISON: Chest single view 02/09/2022, chest CT 06/06/2019 FINDINGS: There are lucencies in the upper lungs, consistent with emphysema. There is mild scarring a t the lung apices. No pneumonia, pleural effusion, or pneumothorax. The heart size is normal. IMPRESSION: 1. Emphysema. Reviewed, dictated and finalized at location A. IMPRESSION: 1. Emphysema.
--- NOTE | 2023-09-15 08:49 | ECG_ITS ---
Test Date: 2023-09-15 08:51:38 Measurements Intervals [place] Rate: 72 P: 59 NE: 136 QRS: -3 QRSD: 90 T: 56 QT: 362 QTc: 398 Interpretive Statements SINUS RHYTHM NORMAL ELECTROCARDIOGRAM No previous ECG available for comparison Electronically Signed On 09-16-2023 13:26:06 CDT by rFitz Abel M.D.
[2023-09-15 08:58] LABS: Glucose Point of Care 108 mg/dl (65-105)
--- NOTE | 2023-09-15 09:01 | ED.DIZZY ---
HPI - Dizziness General Chief Complaint: Dizziness Stated Complaint: dizzy,blurry vision,headache since yesterday Time Seen by Provider: 09/15/23 08:53 History of Present Illness HPI Narrative: 63-year-old male present to the emergency department for evaluation for headache. Patient states that yesterday after mowing his grass he had onset of frontal headache with associated dizziness. States that his right eye is not functioning normally. Patient states that the symptoms have been going on since 6:00 p.m. yesterday. Patient denies any current chest pain or shortness of breath. Patient denies any current nausea vomiting or diarrhea Related Data Allergies Allergy/AdvReac Type Severity Reaction Status Date / Time pentazocine Allergy Mild Unknown Verified 09/15/23 08:53 PMF Past Medical History Medical History (Updated 09/15/23 @ 15:38 by Emmett Alonzo MD) Brainstem stroke syndrome Chest tube in place COPD (chronic obstructive pulmonary disease) Diverticulosis History of pneumothorax History of tobacco abuse HTN (hypertension) Marijuana smoker Shortness of breath on exertion Surgical History Surgical History Colonoscopy planned History of ankle surgery Social History Social History Smoking packs per day: 3 Smoking cigarettes per day: 60.0 Years smoked: 30 Smoking pack-years: 90.00 Smoking status: Former smoker Alcohol intake: current Drinks per week: 35 Substance use: current Substance use type: marijuana Last use: this morning; one joint per day. 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 Has 4 biologic children, lives with significant other Odalys and their daughter Julia. Gender identity (if verbalized by the patient): Male Spiritual care concerns: No Exam Narrative: APPEARANCE: Well appearing, no pain, no distress, well-nourished. HEAD: normocephalic, atraumatic. EYES: PERRLA/EOMI, conjunctivae clear. NOSE: Normal no drainage EARS:TMS clear with good light reflex. THROAT: Pharynx clear, no exudate. NECK: Supple. No adenopathy, no masses. RESPIRATORY: Airway patent, respirations nonlabored. Clear to auscultation bilaterally, no rales, rhonchi, wheezing. CARDIOVASCULAR: Regular rate and rhythm without murmurs rubs or gallops. ABDOMINAL: Soft, nontender, nondistended, normal bowel sounds MUSCULOSKELETAL: Moves all extremities. Strength/ROM intact, No edema, No calf tenderness. NEURO: Alert. Cranial nerves II through XII intact. Good gait. Good coordination SKIN: Warm, dry. Normal Color PSYCHIATRIC: Normal affect/mood. On presentation patient was using his left eye and keeping his right eye closed. When patient has both eyes open he has significant strabismus of the right eye. When closing his left eye patient is able to have full range of motion of the right eye and has no movement deficit and change in vision. When covering the patient's right eye patient's left eye is not able to look past the midline. Course Vital Signs Vital signs: Vital Signs Temperature 97.9 F 09/15/23 08:44 Pulse Rate 73 09/15/23 08:44 Respiratory Rate 20 09/15/23 08:44 Blood Pressure 170/98 H 09/15/23 08:44 Pulse Oximetry 100 09/15/23 08:44 Oxygen Delivery Room Air
[2023-09-15 09:05] LABS: Estimated CRCL calculation 79 ml/min; Estimated Glomerular Filt Rate > 60
[2023-09-15 09:06] LABS: Basophils Percent Auto 0.2 % (0.2-1.2); Eosinophils Absolute Auto 0.1 K/mm3 (0-0.3); Hematocrit 44.2 % (42.0-52.0); Immature Granulocyte Absolute 0.02 K/mm3 (0.00-0.031); Immature Granulocyte Percent A 0.4 % (0-0.5); Lymphocytes Absolute Auto 1.04 K/mm3 (0.9-3.2); Lymphocytes Percent Auto 20.3 % (18.3-44.2); Mean Corpuscular HGB Conc 36.2 g/dl (32-36); Mean Corpuscular Hemoglobin 38.2 pg (26-34); Mean Corpuscular Volume 105.5 fl (80-100); Mean Platelet Volume 9.4 fl (7.4-10.4); Monocytes Absolute Auto 0.4 K/mm3 (0.1-0.6); Neutrophils Absolute Auto 3.6 K/mm3 (1.3-6.7); Neutrophils Percent Auto 70.1 % (45.5-73.1); Platelet Count Result 188 k/mm3 (150-375); Red Blood Count 4.19 M/mm3 (4.6-6.20); White Blood Count 5.1 K/mm3 (4.5-10.0)
[2023-09-15 09:18] LABS: Alanine Aminotransferase 20 U/L (6-50); Albumin Level 3.8 g/dL (3.5-5.1); Alkaline Phosphatase 105 U/L (38-126); Anion Gap 11 mmol/L (4-12); Aspartate Amino Transferase 32 U/L (17-59); Bilirubin,Total 1.7 mg/dL (0.2-1.3); Blood Urea Nitrogen 19 mg/dL (9-20); Calcium 9.2 mg/dL (8.4-10.2); Carbon Dioxide 22 mmol/L (22-30); Chloride 103 mmol/L (98-107); Estimated CRCL calculation 79 ml/min; Estimated Glomerular Filt Rate > 60; Glucose 116 mg/dL (65-110); Potassium 3.4 mmol/L (3.4-5.0); Sodium 136 mmol/L (137-145)
[2023-09-15 09:22] LABS: Partial Thromboplastin Time 26.6 Seconds (22.3-36.8); Prothrombin Time 13.9 Seconds (11.1-14.7)
[2023-09-15] MEDS: ATORVASTATIN 40 MG TABLET PO (10:15)
[2023-09-15] MEDS: CLOPIDOGREL BISULFATE 300 MG TABLET PO (10:15)
--- NOTE | 2023-09-15 13:13 | ADMGEN ---
This patient, Dionte Gallego, was admitted to Medical Room 244-. Patient/family oriented to hospital policies and general routines including ID bracelet, bed and alarms, visiting hours, pain management, procedures, bathroom and other care routines, personal items, smoking policy, room service/diet, and visiting hours. Information on how to activate the Rapid Response Team has been discussed. Patient/Family are encouraged to report perceived risks to care and to ask questions if they do not understand what they are told or what they should do.
--- NOTE | 2023-09-15 13:27 | PM.IMHP ---
H&P: HPI History of Present Illness Date/Time: 09/15/23 13:27 Chief Complaint: Dizziness, Blurred Vision Narrative: 63 y/o M presents here with dizziness and vision changes with PMH of COPD, tobacco use, and HTN. The patient presents here via EMS from home for further evaluation of dizziness, headache, and blurred vision. Onset of symptoms was at 6:00 p.m. on 09/13 while he was having a drink of whiskey and resting after mowing the grass. Dizziness is described as the room spinning and occurs when he stands. He describes the headache as frontal/across eyes, improved, dull, nonradiating, constant, and no aggravating/alleviating factors. Blurred vision occurs when both eyes open and resolves when he covers one eye. Patient reports it is improved but still present. No associated numbness or weakness to extremities, dysarthria, or facial droop. Concurrently has a dental infection to the left lower to with that he was first diagnosed 3 months ago. Has been evaluated for this problem. Has not been on any pain medication or antibiotics recently. Last ED visit on 04/05/2023 for dental infection. States he has been unable to get definitive treatment due to monetary issues. Initial VS at presentation: 97.9? F, HR 73, R 20, 170/90, and 100% on RA. ED workup showed: No leukocytosis, hemoglobin 16.0, sodium 136, creatinine 0.7 and GFR >60, glucose 108, no other significant derangements. CTA head/neck showed old lacunar infarcts in the bilateral basal ganglia and stable moderate nonspecific cerebral white matter disease, 56% stenosis of the proximal right ICA, 5% stenosis of the proximal left ICA. CXR showed emphysema. [facility] Past Medical History Medical History (Updated 09/15/23 @ 15:38 by Emmett Alonzo MD) Brainstem stroke syndrome Chest tube in place COPD (chronic obstructive pulmonary disease) Diverticulosis History of pneumothorax History of tobacco abuse HTN (hypertension) Marijuana smoker Shortness of breath on exertion Surgical History Surgical History Colonoscopy planned History of ankle surgery Social History Social History Smoking packs per day: 3 Smoking cigarettes per day: 60.0 Years smoked: 30 Smoking pack-years: 90.00 Smoking status: Former smoker Alcohol intake: current Drinks per week: 35 Substance use: current Substance use type: marijuana Last use: this morning; one joint per day. 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 Has 4 biologic children, lives with significant other Odalys and their daughter Julia. Gender identity (if verbalized by the patient): Male Spiritual care concerns: No Meds Home Medications and Allergies Home Medications Medication Instructions Recorded Confirmed Type amlodipine 10 mg tablet 10 mg PO DAILY #14 tabs 02/09/22 09/15/23 Rx lisinopril 40 mg tablet 40 mg PO DAILY #14 tabs 02/09/22 09/15/23 Rx Allergies Allergy/AdvReac Type Severity Reaction Status Date / Time pentazocine Allergy Mild Unknown Verified 09/15/23 08:53 Vital Signs Vital Signs - 24 hr 09/15/23 08:44 09/15/23 08:49 09/15/23 09:46 Temperature 97.9 F Pulse Rate 73 74 63 Respiratory Rate 20 13 Blood Pressure 170/98 H 190/92 H Pulse Oximetry 100 100 Oxygen
--- NOTE | 2023-09-15 15:28 | WPDNEURCNPN ---
Assessment and Plan Assessment and plan (1) Brainstem stroke syndrome: Code(s): G46.3 - Brain stem stroke syndrome Status: Acute Assessment and Plan: the differential diagnosis is with a benign paroxysmal positional vertigo here. I did not find any definite limitation of the extraocular movement with exception of unsustained or fatigable direction changing nystagmus suggestive of lateral canal paresis such as may be seen with benign paroxysmal vertigo however the differential diagnosis will be with a brainstem stroke and needs to be carefully followed up. MRI of the brain is recommended. In the meanwhile patient should be treated with antiplatelets and statins. Consult date: 09/15/23 HPI: Dionte Gallego is a 63 year old male With history of dizziness which started this morning. The patient tends to keep his right eye closed. When he initially presented the emergency room physician noted some asymmetry of the I have movements and also nystagmus of the abducting eye and thought that the patient may have internuclear ophthalmoplegia. However upon talking to the patient his all worried about infection of his gums and that is all he wants to talk about. The patient think that that is causing all the problem he has. [facility] Past Medical History Medical History (Updated 09/15/23 @ 15:38 by Emmett Alonzo MD) Brainstem stroke syndrome Chest tube in place COPD (chronic obstructive pulmonary disease) Diverticulosis History of pneumothorax History of tobacco abuse HTN (hypertension) Marijuana smoker Shortness of breath on exertion Surgical History Surgical History Colonoscopy planned History of ankle surgery Social History Social History Smoking packs per day: 3 Smoking cigarettes per day: 60.0 Years smoked: 30 Smoking pack-years: 90.00 Smoking status: Former smoker Alcohol intake: current Drinks per week: 35 Substance use: current Substance use type: marijuana Last use: this morning; one joint per day. 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 Has 4 biologic children, lives with significant other Odalys and their daughter Julia. Gender identity (if verbalized by the patient): Male Spiritual care concerns: No Meds Home Medications and Allergies Home Medications Medication Instructions Recorded Confirmed Type amlodipine 10 mg tablet 10 mg PO DAILY #14 tabs 02/09/22 09/15/23 Rx lisinopril 40 mg tablet 40 mg PO DAILY #14 tabs 02/09/22 09/15/23 Rx Allergies Allergy/AdvReac Type Severity Reaction Status Date / Time pentazocine Allergy Mild Unknown Verified 09/15/23 08:53 Vital Signs Vital Signs - 24 hr 09/15/23 08:44 09/15/23 08:49 09/15/23 09:46 Temperature 36.6 C Pulse Rate 73 74 63 Respiratory Rate 20 13 Blood Pressure 170/98 H 190/92 H Pulse Oximetry 100 100 Oxygen Delivery Room Air 09/15/23 10:17 09/15/23 11:13 09/15/23 12:04 Temperature Pulse Rate 64 65 77 Respiratory Rate 13 15 17 Blood Pressure 196/109 H 171/101 H 171/94 H Pulse Oximetry 98 99 99 Oxygen Delivery 09/15/23 12:29 09/15/23 13:13 09/15/23 14:00 Temperature 36.7 C Pulse Rate 75 76 Respiratory Rate 14 16 Blood Pressure 171/94 H 180/90 H Pulse Oximet
[2023-09-15] MEDS: AMOXICILLIN/CLAVULANATE K 875-125 MG TAB 1 TABLET PO (20:34)
[2023-09-16] VITALS: PULSE 60
--- NOTE | 2023-09-16 | ECHO_ITS ---
Patient Info Name: Dionte Gallego Age: 63 years : 1960 Gender: Male Ht: 71 in Wt: 135 lbs BSA: 1.74 m2 HR: 61 bpm BP: 181 / 89 mmHg Heart Rhythm: Sinus Rhythm Technical Quality: Good Exam Date: 09/16/2023 10:49 AM Exam Location: Echo Lab Patient Status: Inpatient Admit Date: 09/15/2023 Staff Ordering Physician: Jo Byers APRN Smoking Pipe Repairer: Janae Lake RDCS Attending Provider: Octavio Porras MD Referring Physician: Modesta GRANADOS; Exam Type: CA echo doppler w bubble study Study Info Indications - dizziness, blured vision, cva worke up Complete two-dimensional, color flow and Doppler transthoracic echocardiogram is performed. Summary 1. Complete two-dimensional, color flow and Doppler transthoracic echocardiogram is performed. 2. Left ventricular chamber dimension is normal. 3. Left ventricular systolic function is normal, estimated at 65-70%. 4. The left ventricular diastolic function is grade I diastolic dysfunction. 5. E/e' 7 is not elevated. 6. There is mild aortic valve sclerosis. 7. No pulmonary hypertension, estimated pulmonary arterial systolic pressure is 10 mmHg. Left Ventricle E/e' 7 is not elevated. Left ventricular chamber dimension is normal. Left ventricular systolic function is normal, estimated at 65-70%. The left ventricular diastolic function is grade I diastolic dysfunction. Right Ventricle Right ventricular systolic function is normal and with normal TAPSE 2.8 cm. Right ventricular chamber dimension is normal. Left Atria Left atrial chamber dimension is normal. Right Atria Right atrial chamber dimension is normal. Atrial Septum Agitated saline injection with and without valsalva maneuver opacified right side cardiac chambers without shunt to left side cardiac chambers. Intact interatrial septum visualized by 2D and agitated saline imaging. Aortic Valve The aortic valve is trileaflet. There is mild aortic valve sclerosis. There is no aortic valve stenosis. There is no aortic valve regurgitation. Pulmonic Valve There is no pulmonic regurgitation. Mitral Valve There is no mitral valve stenosis. There is no mitral valve regurgitation. Tricuspid Valve There is no tricuspid valve regurgitation. No pulmonary hypertension, estimated pulmonary arterial systolic pressure is 10 mmHg. Pericardium/Pleural There is no pericardial effusion. Inferior Vena Cava Normal inferior vena cava with >50% collapse upon inspiration consistent with normal right atrial pressure, 5 mmHg. Aorta The aortic root size at the sinus of Valsalva is normal. Left Ventricular Outflow Tract Name Value Normal LVOT 2D LVOT Diameter 2.0 cm LVOT Doppler LVOT Peak Gradient 3 mmHg LVOT Mean Gradient 1 mmHg LVOT VTI 18 cm LVOT VTI/AV VTI Ratio 0.9 LVOT Stroke Volume 59 ml LVOT CO 4.4 l/min LVOT CI 2.5 l/min/m2 Pulmonic Valve Name Value Normal --------
[2023-09-16 04:00] VITALS: PULSE 61
[2023-09-16 05:16] LABS: Basophils Percent Auto 0.2 % (0.2-1.2); Eosinophils Absolute Auto 0.1 K/mm3 (0-0.3); Eosinophils Percent Auto 1.6 % (0-4.4); Hematocrit 41.6 % (42.0-52.0); Hemoglobin 14.9 g/dL (14.0-18.0); Immature Granulocyte Absolute 0.02 K/mm3 (0.00-0.031); Immature Granulocyte Percent A 0.4 % (0-0.5); Lymphocytes Absolute Auto 1.26 K/mm3 (0.9-3.2); Lymphocytes Percent Auto 22.5 % (18.3-44.2); Mean Corpuscular HGB Conc 35.8 g/dl (32-36); Mean Corpuscular Hemoglobin 37.9 pg (26-34); Mean Corpuscular Volume 105.9 fl (80-100); Mean Platelet Volume 9.7 fl (7.4-10.4); Monocytes Absolute Auto 0.5 K/mm3 (0.1-0.6); Monocytes Percent Auto 8.4 % (2.6-8.5); Neutrophils Absolute Auto 3.7 K/mm3 (1.3-6.7); Neutrophils Percent Auto 66.9 % (45.5-73.1); Platelet Count Result 187 k/mm3 (150-375); Red Blood Count 3.93 M/mm3 (4.6-6.20); White Blood Count 5.6 K/mm3 (4.5-10.0)
[2023-09-16 05:31] LABS: Alanine Aminotransferase 18 U/L (6-50); Albumin Level 3.4 g/dL (3.5-5.1); Alkaline Phosphatase 84 U/L (38-126); Anion Gap 7 mmol/L (4-12); Aspartate Amino Transferase 30 U/L (17-59); Bilirubin,Total 1.2 mg/dL (0.2-1.3); Blood Urea Nitrogen 18 mg/dL (9-20); Calcium 8.9 mg/dL (8.4-10.2); Carbon Dioxide 28 mmol/L (22-30); Chloride 101 mmol/L (98-107); Cholesterol 129 mg/dL (0-200); Estimated CRCL calculation 79 ml/min; Estimated Glomerular Filt Rate > 60; Glucose 114 mg/dL (65-110); HDL Direct 69 mg/dL; Potassium 3.4 mmol/L (3.4-5.0); Sodium 136 mmol/L (137-145); Triglycerides 72 mg/dL (<150)
[2023-09-16 05:42] LABS: LDL Cholesterol Direct 44 mg/dL
[2023-09-16 05:45] LABS: Hemoglobin A1C 4.8 % (<5.7)
[2023-09-16 06:00] VITALS: BP 162/86; PULSE 60; RESP 20; TEMP 36.7; O2SAT 98
[2023-09-16] MEDS: CLOPIDOGREL BISULFATE 75 MG TABLET PO (08:50)
[2023-09-16] MEDS: amLODIPine BESYLATE 10 MG TABLET PO (08:50)
[2023-09-16] MEDS: ASPIRIN 81 MG CHEWABLE TABLET PO (08:50)
[2023-09-16] MEDS: ATORVASTATIN 40 MG TABLET PO (08:50)
[2023-09-16] MEDS: AMOXICILLIN/CLAVULANATE K 875-125 MG TAB 1 TABLET PO (08:50)
[2023-09-16] MEDS: lisinopriL 20 MG TABLET 40 MG PO (08:50)
[2023-09-16 12:00] VITALS: PULSE 86
[2023-09-16 13:15] LABS: Folic Acid 6.4 ng/mL (2.76->20)
[2023-09-16 14:00] VITALS: BP 157/74; PULSE 65; RESP 14; TEMP 36.2; O2SAT 99
--- NOTE | 2023-10-27 12:21 | PM.DS ---
DS: Admitting Diagnosis Discharge Date 09/16/23 Admitting Diagnosis Dizziness, headache, blurred vision DS: Discharge Diagnosis Discharge Diagnosis (1) Headache: Qualifiers: Headache chronicity pattern: acute headache Headache type: unspecified Code(s): R51.9 - Headache, unspecified Status: Acute Assessment and Plan: Unclear etiology. Possibly alcohol vs heat related vs other. Resolved. (2) Dizziness: Code(s): R42 - Dizziness and giddiness Status: Acute Assessment and Plan: Unclear etiology. Possibly BPPV vs alcohol related vs exhaustion vs other. Resolved. (3) Blurred vision: Code(s): H53.8 - Other visual disturbances Status: Acute Assessment and Plan: Unclear etiology. Possibly BPPV vs alcohol related vs exhaustion vs other. Resolved prior to discharge. Plan Discharge home DS: Summary Hospital Course Reason for hospitalization: Acute onset of headache, dizziness and blurred vision. Hospital Course: Patient presented to the ER with new onset headache, dizziness and blurred vision. Patient reported symptoms started when he was drinking whiskey at home after mowing grass. He was admitted on observation for further work-up on his symptoms. Patient's labs were fairly unremarkable, and his EKG showed SR, with the patient maintaining SR on tele inpatient. He underwent CTA Brain and neck that did not show any significant occlusions, with the patient's MRI brain also not revealing any acute findings. No obvious neurological deficits were noted inpatient, only having some brief unsustained nystagmus with eye movement. He was seen by the neurologist and his symptoms were suspected to be possibly related to possible BPPV. Patient with no acute symptoms today and states feels good and wants to go home. He has been cleared for discharge by the neurologist and will be started on low-dose aspirin and statin. No acute findings were noted or reported prior to discharge. Status at Discharge Cognitive/behavioral status at discharge: Stable Functional status at discharge: independent ambulation Overall status at discharge: patient is back to baseline Time Spent with Patient Time attestation: Total time spent providing and/or coordinating discharge services: Time spent: Greater than 30 minutes Exam Narrative: Const: General: comfortable and no acute distress Other: , male, nontoxic appearance HENMT: Face/Nose/Sinus: Normal nares present Mouth: Yes moist mucous membranes Other: Slight swelling to left lower gumline without active drainage. Overall poor dentition. Eyes: Other: PERRLA. Mild unsustained nystagmus with eye movement.. Neck: Neck: supple Resp: Effort & Inspection: normal respiratory effort Auscultation: clear to auscultation bilaterally Cardio: Rate: regular rate Rhythm: regular rhythm GI: GI Palp: Yes Soft to palpation Auscultation: normal bowel sounds Skin: General skin exam: no rashes or lesions noted Wounds: no wounds Neuro: Speech: normal speech Motor exam (neuro): 5/5 motor strength present throughout Sensory Exam: normal sensation Other: see eye exam. No dysarthria, focal weakness, focal numbness, facial droop, or ataxia noted. Extrem: General: normal to inspection Psych: Mental Status: mental status grossly normal Affect: normal affect Other: Good insight and judgment, pleasant Discharge Plan Discharge Attending physician on discharge: Ben Stanford Consulting providers: Emmett Alonzo; Jo Byers; Jenny Gregory; Fritz Abel; Marco Priest V.; Mark Malin Discharging Clinician: Jenny Gregory Patient Disposition: Home, Self-Care Activity: as tolerated Diet: heart healthy Patient Instructions: Antibiotic Form Stand Alone Forms: General Discharge Information Follow-up/Referrals: PCP [Other] Discharge Medications: New
== END 2023-09-16 17:40 | disposition home or self-care (01) ==
LOC: ANHED 10:09 → ANH2MED 12:30
PROVIDERS: Student in an Organized Health Care Education/Training Program; Admitting Provider Internal Medicine; Emergency Provider Emergency Medicine; Visit Provider Internal Medicine
DX: H51.22 Internuclear ophthalmoplegia, left eye (principal); K04.7 Periapical abscess without sinus; R51.9 Headache, unspecified; R42 Dizziness and giddiness; J44.9 Chronic obstructive pulmonary disease, unspecified; I10 Essential (primary) hypertension; Z87.891 Personal history of nicotine dependence; F12.90 Cannabis use, unspecified, uncomplicated; Z79.899 Other long term (current) drug therapy
CPT/HCPCS: 36415; 70496; 70498; 70543; 70553; 71046; 80053; 80061; 82607; 82746; 82948; 83036; 85025; 85610; 85730; 93005; 93306; 96375; 99285; A9270; A9577; G0378; G0379; Q9967

== ENCOUNTER 2024-04-23 10:43 | Emergency (ER) | payer MEDICARE, MEDICAID, SELFPAY ==
--- NOTE | 2024-04-23 10:46 | ED_ITS ---
HPI - Dental/Oral General Chief complaint: Unspecified Stated complaint: HBP no meds [id number],L tooth pain,legs numb Time Seen by Provider: 04/23/24 10:44 Source: patient Mode of arrival: ambulatory Limitations: no limitations History of Present Illness HPI Narrative: Patient is a 64-year-old male who presents with dental pain surrounding his single remaining tooth on bottom. Patient also has been out of blood pressure medicine since November. Patient does not have a primary care or current dentist appointment. Patient does state when he gets his social security he will use that money to go to the dentist have tooth pulled. Related Data Allergies Allergy/AdvReac Type Severity Reaction Status Date / Time pentazocine Allergy Mild Unknown Verified 09/15/23 08:53 Review of Systems Review of Systems: All systems reviewed & are unremarkable except as noted in HPI and below Constitutional: Constitutional: Denies body ache(s), Denies chills, Denies fatigue, Denies fever(s), Denies headache(s), Denies malaise and Denies weakness Eyes: Eyes: Denies blurry vision, Denies irritation and Denies loss of vision ENT: Denies otalgia, Reports facial pain (Dental pain), Denies headache(s), Denies nasal discharge, Denies sinus pain and Denies sore throat Cardiovascular: Cardiovascular: Denies chest pain, Denies irregular heart rhythm and Denies dyspnea Respiratory: Respiratory: Denies dyspnea Gastrointestinal: Gastrointestinal: Denies abdominal pain, Denies melena, Denies hematochezia, Denies diarrhea, Denies nausea and Denies vomiting Musculoskeletal: Musculoskeletal: Denies back pain, Denies myalgias and Denies arthralgias Integumentary/Breasts: Skin/Breast: Denies pruritus and Denies rash Neurologic: Denies headache(s), Denies loss of vision and Denies weakness Psychiatric: Psychiatric: Reports no additional psychiatric complaints Endocrine: Endocrine: Denies fatigue PMFSH Past Medical History Medical History Brainstem stroke syndrome History of pneumothorax History of tobacco abuse Shortness of breath on exertion Marijuana smoker Chest tube in place COPD (chronic obstructive pulmonary disease) HTN (hypertension) Diverticulosis Surgical History Surgical History History of ankle surgery Colonoscopy planned Social History Social History Smoking packs per day: 3 Smoking cigarettes per day: 60.0 Years smoked: 30 Smoking pack-years: 90.00 Smoking status: Former smoker Alcohol intake: current Drinks per week: 35 Substance use: current Substance use type: marijuana Last use: this morning; one joint per day. 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 Has 4 biologic children, lives with significant other Odalys and their daughter Julia. Gender identity (if verbalized by the patient): Male Spiritual care concerns: No Comments At time of signature, agree with nursing past medical, surgical, social and family history. There is no relevant family history pertinent to the presenting complaint. Exam Const: General: cooperative, healthy appearing, comfortable, no acute distress and well nourished Nutritional Appearance: well nourished Orientation/consciousness: patient oriented x3 Limitations: no limitations HENMT: Head: normal to inspection, normocephalic and atraumatic Ears: hearing grossly normal bilaterally and external ears normal Face/Nose/Sinus: Normal external nose present, normal facial exam and face symmetric Face and sinus: normal facial exam and face symmetric Mouth: Yes lip normal Teeth and gingiva: abnormal tooth and associated gingiva lower left lateral incisor tender, with associated gingival edema and dentin fractured, caries and poor dentition Eyes: General: appearance normal, both eyes and all related structures Alignment and Position: alignment normal and position normal Periorbital: periorbital findings normal Eyelids: eyelids normal Pupils: Equal, round and reactive pupils present EOM: EOMs intact bilaterally Neck: Neck: normal visual inspection, full ROM and supple Chest: Chest palpation & inspection: normal inspection of the chest Resp: Effort & Inspection: normal respiratory effort and able to speak in complete sentences Auscultation: clear to auscultation bilaterally Cardio: Rate: regular rate Rhythm: regular rhythm Heart sounds: S1 normal heart sound present and S2 normal heart sound present GI: Inspection: normal to inspection Skin: General skin exam: normal color and no rashes or lesions noted Neuro: General: patient oriented x3 and moves all extremities Cranial nerves: Yes Equal, round and reactive pupils present Speech: normal speech Gait exam (Neuro): Normal gait present Extrem: General: normal to inspection, full ROM and no edema Psych: Appearance: grossly normal and well kempt Mental Status: mental status grossly normal Speech and movement: Normal speech and movement present Affect: normal affect Attitude: cooperative Thought process: Normal thought process present Course Course Emergency Course: Patient is aware of diagnosis, understands and agrees to treatment plan. Anticipatory guidance given. Patient agrees to follow-up as directed and is aware of reasons to seek care at the emergency department. Portions of this record may have been created with voice recognition software Level of Care: Express Care Visit Vital Signs Vital signs: Reviewed MDM - Dental/Oral MDM Narrative Medical decision making narrative: Discussed importance of following up and establishing with a PCP. Provided patient with PCP referral that is across the street from this facility. Patient states he can take the bus there so he will call for an appointment. Will write for blood pressure medicine in the meantime. Patient states he has been on those medications for several years. Also treat with antibiotics for dental abscess. Pt well hydrated appearing, in no respiratory distress, hemodynamically stable. Recommend supportive care. The patient is stable at time of discharge the clinical impression was discussed and the patient was given the opportunity to ask questions, which were addressed as completely as possible given the information available at present. Anticipatory guidance and return to care precautions were discussed and the importance of primary care follow-up was stressed and encouraged. The patient voiced understanding of the plan, indications to return, and the need for follow-up. Exam findings show no acute concerns or changes Patient is appropriate for outpatient treatment and follow-up. Differential Diagnosis Differential diagnosis: Likely gingival abscess, dental caries, toothache and dental abscess Medical Records Attestation: I reviewed the patient's medical records. Discharge Plan Discharge Clinical Impression: Dental infection Patient Disposition: Home, Self-Care Condition: Stable Instructions: Dental Abscess (ED) Additional Instructions: Take antibiotic until it's gone. Brushing teeth at least twice daily with gentle flossing. Avoid temperature extremes---when you eat. Salt gargle to rinse your mouth after every meal You may apply ice to the face to reduce pain/swelling. For pain, you may take: Tylenol 650-1000mg by mouth every 4-6 hours. Do not exceed 4000mg in 24 hours. Advil (Ibuprofen) 600 mg by mouth every 6 hours. Do not exceed 2400mg in 24 hours. Also, recommend regular dental check up one-two times a year to prevent tooth decay and other periodontal disease. Follow-up with the dentist as soon as possible--see the list provided Patient Language: Palestinian Prescriptions: New amoxicillin-pot clavulanate 875-125 mg tablet 1 tablet PO Q12H 10 Days Qty: 20 0RF amlodipine 10 mg tablet 10 mg PO DAILY 60 Days Qty: 60 0RF lisinopril 40 mg tablet 40 mg PO DAILY 60 Days Qty: 60 0RF No Action aspirin [Children's Aspirin] 81 mg Tablet,Chewable 81 mg PO DAILY@0800 Qty: 30 0RF amlodipine 10 mg tablet 10 mg PO DAILY Qty: 60 0RF lisinopril 40 mg tablet 40 mg PO DAILY Qty: 60 0RF Follow-up/Referrals: Helen Fernández DO [Physician] - 3 Days (Establish care) Time of Disposition: 11:39
[2024-04-23 10:58] VITALS: BP 192/99; PULSE 80; RESP 16; TEMP 37.1; O2SAT 98
== END 2024-04-23 11:44 | disposition home or self-care (01) ==
PROVIDERS: Emergency Provider Nurse Practitioner Family
DX: K04.7 Periapical abscess without sinus (principal); I10 Essential (primary) hypertension; J44.9 Chronic obstructive pulmonary disease, unspecified; F12.90 Cannabis use, unspecified, uncomplicated; F10.90 Alcohol use, unspecified, uncomplicated; Z87.891 Personal history of nicotine dependence
CPT/HCPCS: 99213; G0463